=== PATIENT | female | born 1995 | race Hispanic/Latino ===

== ENCOUNTER 2018-04-30 20:17 | Day surgery (SDC) | payer BC ==
[2018-04-30 21:10] VITALS: BP 101/60; TEMP 99.1; BMI 19.3
--- NOTE | 2018-04-30 21:22 | PDOC.LDHP ---
Labor and Delivery H&P Chief complaint: contractions HPI: 22 y/o at 23w5d, patient of Dr. Beckham, presents with intermittent ctx today, vaginal discharge, and some SOB earlier that has now resolved. Denies VB , LOF, regular ctx, or decreased FM. ROS neg for HEENt, cv, pulm, gi, gu, neuro, psych, skin, musculoskeletal or constitutional symptoms other than mentioned above. OB History Details: 1 prior LTCS 1 prior "5 month" demise with Current complications: none Past Medical History: None Current medications: none Previous surgical history: low tranverse CS Allergies/Adverse Reactions: Allergies Allergy/AdvReac Type Severity Reaction Status Date / Time No Known Allergies Allergy Unverified 04/30/18 21:05 Social history: none - Physical Exam Vital signs reviewed and normal: yes General: NAD, resting Lungs: CTAB Abdomen: NTTP FHT: category 1 (150s, mod variability, + 10x10 accels, single variable decel) [place] contractions every: none - Vaginal Exam cm dilated: 0 (firm, posterior) Effacement: 0% (0) Station: -3 - Assessment 22 y/o at 23w5d with no e/o PTL. status reassuring. VP3 pending. - Plan -: D/c home with precautions. Advised to keep all appointments. Will call if VP3 results require treatment.
== END 2018-04-30 21:25 | disposition home or self-care (01) ==
LOC: L&D/OP 20:17
PROVIDERS: ATTEND Family Medicine
DX: O47.02 False labor before 37 completed weeks of gestation, second trimester (principal); O99.89 Other specified diseases and conditions complicating pregnancy, childbirth and the puerperium; N89.8 Other specified noninflammatory disorders of vagina; Z3A.23 23 weeks gestation of pregnancy
CPT/HCPCS: 87480; 87510; 87660; 99283

== ENCOUNTER 2018-05-05 07:15 | Outpatient (CLI) | payer BC ==
--- NOTE | 2018-05-05 08:41 | ULT ---
OB ULTRASOUND: 05/05/2018 HISTORY: Intrauterine gestation. Evaluate anatomy. FINDINGS There is a single intrauterine gestation, in cephalic presentation. Cardiac Doppler demonstrates fet al heart tones with a heart rate of 146 beats per minute. The placenta is located posteriorly without evidence of placenta previa. There is a normal amount of amniotic fluid with an amniotic flu id index of 10.19 cm. The cervix is not well delineated on this examination. MEASUREMENTS: Biparietal diameter: 5.93 cm (24 weeks 2 days). Head circumference: 21.61 cm (23 weeks 5 days). Abdominal circumference: 18.65 cm (23 weeks 4 days). Femur length: 4.25 cm (24 weeks). The estimated gestational age by ultrasound is 24 weeks, with an EBONIE of 09/14/2018. Gestational age by last menstrual period is 24 weeks 3 days. Estimated weight by ultrasound is 616 g (1 lb 6 oz). This represents the 13th percentile for f etal weight. The cerebellum, the visualized portion of the spine, the four-chambered heart, the stomach, the bilateral kidneys, and the urinary bladder demonstrate a normal sonographic appearance. Cord insert ion is difficult to delineate due to positioning but is grossly within normal limits. A three- vessel cord is unable to be delineated on this exam. No definite anomalies are seen. IMPRESSION: 1. Single intrauterine gestation, in cephalic presentation, with heart tones documented. Gest ational age by ultrasound is 24 weeks, with an estimated date of delivery of 08/25/2018. 2. Estimated weight is 616 g (1 lb 6 oz). 3. Amniotic fluid index is 10.19 cm. POS: [facility]
== END 2018-05-05 07:16 | disposition home or self-care (01) ==
LOC: BICULT 07:15
PROVIDERS: ATTEND Family Medicine
DX: O09.892 Supervision of other high risk pregnancies, second trimester (principal); Z3A.24 24 weeks gestation of pregnancy
CPT/HCPCS: 76805

== ENCOUNTER 2018-07-17 18:41 | Day surgery (SDC) | payer OTHER ==
[2018-07-17 19:14] VITALS: BP 111/68; TEMP 98; BMI 19.2
[2018-07-17] MEDS ORDERED: Betamet Acet/Betamet Na Ph 30 MG/5 ML VIAL IM SCH (20:15)
--- NOTE | 2018-07-18 02:29 | PRG ---
DATE OF SERVICE: 07/17/2018 PRIMARY OBSTETRICS: Vel Beckham MD CHIEF COMPLAINT: Abdominal pain. HISTORY OF PRESENT ILLNESS: The patient is a 22-year-old, G3, P1 female with an intrauterine at 34 weeks and 6 days, who is presenting to Labor and Delivery with uterine contractions that she has been feeling about every 20 to 30 minutes. She reports that she delivered her last baby around 34 weeks and is worried that she may be delivering this baby at the same time. She denies any regular painful contractions apart from the one she is feeling 2 to 3 an hour. The patient denies any vaginal bleeding or leakage of fluid. She denies any urinary urgency or frequency. She denies any headache, chest pain, shortness of breath, nausea, vomiting, diarrhea, constipation, hip problems, knee problems, muscle weakness. The patient denies any supplementation or progesterone supplementation with her OB doctor. PAST MEDICAL HISTORY: Negative. PAST SURGICAL HISTORY: She has had a tonsillectomy. ALLERGIES: NO KNOWN DRUG ALLERGIES. MEDICATIONS: vitamins. PAST SURGICAL HISTORY: for non-reassuring heart tones. SOCIAL HISTORY: Denies drug, alcohol, or tobacco use. OBSTETRICS LABORATORY DATA: Unavailable at time of dictation. REVIEW OF SYSTEMS: Per HPI. PHYSICAL EXAMINATION: VITAL SIGNS: Blood pressure 119/70, heart rate of 90, respiratory rate of 18, saturating 100% on room air, temperature 98. GENERAL: She appears to be in no acute distress. She is alert, oriented, cooperative, and pleasant to interact with. HEAD: Normocephalic, atraumatic. LUNGS: Clear to auscultation bilaterally. HEART: Regular rate and rhythm. ABDOMEN: Gravid, soft, and nontender. EXTREMITIES: Nontender and nonedematous. CERVICAL: The patient is 1, 75, and -1 station. Repeat after 2-1/2 hours is unchanged. heart tracing baseline is shown to be in the 130s with moderate long-term variability, positive 15 x 15 accelerations, no decelerations. She does show irritability on the monitor with contractions at about every 7 to 15 minutes. ASSESSMENT AND PLAN: The patient is a 22-year-old female with an intrauterine at 34 weeks and 6 days, and feels by digital exam, a shortened cervix. The patient is showing irritability with contractions on the monitor and given the patient's history of 34-week delivery, we have opted to treat the patient with steroids. She has gotten one dose of betamethasone this evening. She will be discharged to home with instructions to return tomorrow for her second shot. Fetus has a reactive NST and category 1 tracing. The patient has been sent home with labor precautions. Job ID: [id number]
== END 2018-07-17 21:50 | disposition home or self-care (01) ==
LOC: L&D/OP 18:41
PROVIDERS: ATTEND Family Medicine
DX: O47.03 False labor before 37 completed weeks of gestation, third trimester (principal); Z3A.34 34 weeks gestation of pregnancy; Z79.899 Other long term (current) drug therapy; Z87.51 Personal history of pre-term labor
CPT/HCPCS: 59025; 96372; 99283; J0702

== ENCOUNTER 2018-08-16 10:56 | Inpatient (IN) | payer MEDICAID, SELFPAY ==
[2018-08-16 11:47] VITALS: BMI 20.2
[2018-08-16] MEDS ORDERED: Ondansetron PF 4 MG/2 ML Vial IVP PRN ×3 (12:20→17:20)
[2018-08-16] MEDS ORDERED: Bicitra 30 ML UDCUP PO SCH (12:20)
[2018-08-16] MEDS ORDERED: Promethazine HCl 25 MG/ML VIAL IM PRN ×2 (12:20→14:11)
[2018-08-16] MEDS ORDERED: Lactated Ringer's 1,000 ML IV SCH (12:20)
[2018-08-16] MEDS ORDERED: CEFAZOLIN 2 GM in Premix Bag 1 BAG IVPB SCH (12:30)
[2018-08-16 12:32] LABS: Hemoglobin 9.5 g/dL (12.0-16.0); Mean Corpuscular HGB CONC 33.8 g/dL (32.0-36.0); Mean Corpuscular Hemoglobin 20.2 pg (27.0-31.0); Mean Corpuscular Volume 59.8 fL (78.0-98.0); Mean Platelet Volume 11.2 fL (7.4-10.4); Platelet Count 428 thou/uL (130-400); RBC Distribution Width 18.4 % (11.5-14.5); Red Blood Cell (RBC) Count 4.67 mill/uL (4.20-5.40); White Blood Cell (WBC) Count 10.6 thou/uL (4.8-10.8)
[2018-08-16] MEDS ORDERED: Fentanyl 100 MCG/2 ML VIAL ONE (13:04)
[2018-08-16] MEDS ORDERED: MORPHINE 5 MG/10 ML PF VIAL ONE (13:04)
[2018-08-16] MEDS ORDERED: Oxytocin 10 UNITS/ML VIAL ONE ×2 (13:05→14:54)
[2018-08-16] MEDS ORDERED: Metoclopramide HCl 10 MG/2 ML VIAL ONE ×2 (13:05→13:39)
[2018-08-16] MEDS ORDERED: Ondansetron PF 4 MG/2 ML Vial ONE ×2 (13:05→13:39)
[2018-08-16 13:11] LABS: Syphilis Antibody Nonreactive (Nonreactive); Syphilis Antibody Index 0.03 S/CO (<1.00 Non-Reactive)
[2018-08-16 13:12] LABS: HBSAg Index 0.29 S/CO (0-0.99); Hep B Surf Ag Non-Reactive S/CO (NonReactive)
[2018-08-16] MEDS ORDERED: Ketorolac Tromethamine 30 MG/ML VIAL ONE ×2 (13:39→14:44)
[2018-08-16] MEDS ORDERED: ePHEDrine 50 MG/ML VIAL ONE (13:39)
[2018-08-16] MEDS ORDERED: Ketorolac Tromethamine 30 MG/ML VIAL IVP PRN (14:11)
[2018-08-16] MEDS ORDERED: Naloxone HCl 0.4 mg/ml Vial IVP PRN ×2 (14:11)
[2018-08-16] MEDS ORDERED: Ondansetron HCl/PF 4 MG/2 ML Vial IVP PRN (14:11)
[2018-08-16] MEDS ORDERED: diphenhydrAMINE 50 MG/ML VIAL IVP PRN (14:11)
[2018-08-16] MEDS ORDERED: HYDROmorphone 2 MG/ML VIAL SLOW IVP PRN (14:11)
[2018-08-16] MEDS ORDERED: Promethazine HCl 25 MG SUPP PR PRN (14:11)
[2018-08-16] MEDS ORDERED: L&D-Morphine 4 MG/ML VIAL SLOW IVP PRN (14:11)
[2018-08-16] MEDS ORDERED: Ketorolac Tromethamine 30 MG/ML VIAL IVP SCH ×2 (14:15→18:00)
[2018-08-16] MEDS ORDERED: Communication Order-Pharmacy FS SCH (14:15)
[2018-08-16] MEDS ORDERED: Naloxone HCl 0.4 mg/ml Vial IV PRN (14:30)
[2018-08-16] MEDS ORDERED: Meperidine HCl/PF 25 MG/ML VIAL ONE ×2 (15:37→16:50)
[2018-08-16] MEDS: Meperidine HCl/PF 25 MG/ML VIAL SLOW IVP PRN ×2 (15:41→16:51)
[2018-08-16] MEDS ORDERED: Adacel (T-DAP) 0.5 ML SYRINGE IM ONE (17:20)
[2018-08-16] MEDS ORDERED: diphenhydrAMINE 25 MG CAP PO PRN (17:20)
[2018-08-16] MEDS ORDERED: Lanolin Ointment 7 GM TUBE TOP PRN (17:20)
[2018-08-16] MEDS ORDERED: NS / Oxytocin 40 units/1000ml 1,000 ML IV SCH (17:20)
[2018-08-16] MEDS ORDERED: Meperidine HCl/PF 25 MG/ML VIAL IM PRN (17:20)
[2018-08-16] MEDS ORDERED: Bisacodyl 10 MG SUPP PR PRN (17:20)
[2018-08-16] MEDS: Ketorolac Tromethamine 30 MG/ML VIAL IVP SCH (20:15)
[2018-08-16] MEDS: Ferrous Sulfate 325 MG TAB PO SCH (22:08)
[2018-08-16] MEDS: Docusate Calcium (SURFAK) 240 MG CAP PO SCH (22:08)
[2018-08-17] MEDS: Ketorolac Tromethamine 30 MG/ML VIAL IVP SCH ×2 (02:12→07:50)
[2018-08-17] MEDS ORDERED: Sodium Chloride 0.9% 10 ML ONE ×2 (04:40→07:48)
[2018-08-17] MEDS: HYDROcodone/Acetaminophen 5/325 mg Tablet PO PRN ×3 (04:42→20:03)
[2018-08-17 06:32] LABS: Hemoglobin 7.7 g/dL (12.0-16.0); Mean Corpuscular HGB CONC 32.8 g/dL (32.0-36.0); Mean Corpuscular Hemoglobin 20.2 pg (27.0-31.0); Mean Corpuscular Volume 61.5 fL (78.0-98.0); Mean Platelet Volume 5.3 fL (7.4-10.4); Platelet Count 332 thou/uL (130-400); RBC Distribution Width 18.6 % (11.5-14.5); Red Blood Cell (RBC) Count 3.81 mill/uL (4.20-5.40); White Blood Cell (WBC) Count 12.6 thou/uL (4.8-10.8)
[2018-08-17] MEDS: Ferrous Sulfate 325 MG TAB PO SCH ×2 (07:52→20:04)
[2018-08-17] MEDS: Prenatal Vitamin 1 TAB PO SCH (07:53)
[2018-08-17] MEDS: Docusate Calcium (SURFAK) 240 MG CAP PO SCH ×2 (07:53→20:04)
--- NOTE | 2018-08-17 10:50 | PDOC.PP ---
Post Progress Note Post Day #: 1 Subjective: Feeling well. Pain is well controlled and she is up to the bathroom without issue. She endorses some blood tinged urine but no blood clots and is getting progressively more yellow. PO intake tolerated: yes Flatus: yes Ambulation: yes Vital Signs (12 hours) Temp Pulse Resp BP Pulse Ox 08/17/18 08:20 98.2 F 69 20 112/76 98 08/17/18 05:00 98.2 F 62 16 118/69 08/16/18 23:58 98.5 F 77 16 114/59 L Weight Weight 51.71 kg - Physical Examination General: NAD Cardiovascular: no m/r/g, RRR Respiratory: clear to auscultation bilaterally, non-labored breathing Abdominal: + bowel sounds, lochia (scant), no distention, appropriately TTP Fundus firm & at: umbilicus Extremities: negative homans (B) Skin: CS incision dry & intact (pressure dressing in place) Neurological: no gross focal deficits Psychiatric: A&Ox3, normal affect Result Diagrams: 08/17/18 05:54 Additional Labs: Post Labs Blood Type O POSITIVE 08/16/18 17:21 Hep Bs Antigen Non-Reactive S/CO (NonReactive) 08/16/18 12:22 (1) Status post repeat low transverse section Code(s): Z98.891 - HISTORY OF UTERINE SCAR FROM PREVIOUS SURGERY Status: Acute (2) Term delivered Code(s): O80 - ENCOUNTER FOR FULL-TERM UNCOMPLICATED DELIVERY Status: Acute - Assessment/Plan 22 yo now 1112 POD #2 from repeat LTCS 1. POD #1 - course progressing as expected - Pain well controlled - Continue routine pp care
[2018-08-17] MEDS: Ibuprofen 800 MG TAB PO SCH ×2 (14:13→21:31)
--- NOTE | 2018-08-17 15:19 | OP ---
DATE OF PROCEDURE: 08/16/2018 RESIDENT SURGEON: Nella Turner MD, PGY-3 ATTENDING SURGEON: Vel Beckham MD PROCEDURE PERFORMED: Repeat low transverse section. PREOPERATIVE DIAGNOSES: 1. Term intrauterine . 2. Previous section x1. POSTOPERATIVE DIAGNOSES: 1. Term intrauterine , status post repeat low transverse section. 2. Uterine window, repaired. ANESTHESIA: Spinal. INDICATIONS: The patient is a 22-year-old, G3, P0-1-1-1 at 39.1 weeks gestation , who presented for repeat scheduled . DESCRIPTION OF PROCEDURE: After risks, benefits, and alternatives were explained to the patient, she gave informed consent. Preoperative antibiotics included cefazolin 2 g IV. The patient was taken to the operating room and spinal anesthesia was initiated. She was placed in supine position with left tilt and prepped and draped in usual sterile fashion. Pfannenstiel incision was made with a scalpel and carried down to the level of the fascia, which was sharply nicked. The fascial cut was extended bilaterally with Francis scissors. The inferior and superior edges of the fascial edges were elevated with Jose clamps and underlying rectus muscles were sharply and bluntly dissected free. Of note, significant adhesions were noted at this level. The recti were divided digitally and retracted medially. Peritoneum was entered bluntly and retracted manually, again with thick adhesions. The bladder blade was placed and notable uterine window, approx 1 cm x 3 cm was visualized. The bladder flap was unable to be created due to the low nature of the window. The uterus unable to be opened with Allis clamp and was carefully entered with a scalpel. Clear fluid was seen. The hysterotomy was extended manually. The infant was noted to be vertex and easily delivered by fundal pressure. Mouth and nares were bulb suctioned. The cord was clamped and cut, and grossly normal female was handed to the nurse. Cord blood was obtained. Placenta was manually extracted, found to be intact with three vessel cord and discarded. The uterus was externalized and the endometrium was curetted with a dry lap. The bladder blade was replaced and the uterus closed with a running locking 0 Vicryl suture followed by a running nonlocking 0 Vicryl imbricating suture. Following this, an additional suture of [id number] suture was placed at both corners for hemostasis. The abdomen was irrigated and suctioned free of clots. Seprafilm was applied to the anterior surface of the uterus. The uterus was internalized and the hysterotomy was again noted to be hemostatic. The peritoneum was closed with a running 3-0 Vicryl suture. The fascia was closed with a running nonlocking 0 PDS suture. Subcutaneous tissue was irrigated. All bleeders were cauterized. The subcutaneous fat was approximated with three interrupted 3-0 Vicryl sutures. The skin was approximated with oneal and a pressure dressing was placed. All counts were correct. The patient tolerated the procedure well and sent to the recovery room in stable condition. QUANTITATIVE BLOOD LOSS: 622 mL. COMPLICATIONS: Significant adhesions at the level of the fascia and rectus were noted. The patient also had a large uterine window anteriorly, which was incorporated with hysterotomy repair. This was very low lying and a vaginal exam was performed showed a patent cervix. The patient also had blood-tinged urine after the procedure without any clots. SPECIMEN: Cord blood sent to lab for blood type. FINDINGS: Grossly normal female with Apgars of 7, 8, and 9 at 1, 5, and 10 minutes respectively. Grossly normal placenta with three vessel cord discarded. DRAINS: Gutierrez to gravity draining blood-tinged urine as noted above. Job ID: [id number] [facility]
[2018-08-17] MEDS: Simethicone Chewable 80 MG TAB PO PRN ×2 (17:37→21:31)
[2018-08-18] MEDS: Ibuprofen 800 MG TAB PO SCH ×3 (05:23→22:09)
[2018-08-18] MEDS: Docusate Calcium (SURFAK) 240 MG CAP PO SCH ×2 (08:42→22:09)
[2018-08-18] MEDS: HYDROcodone/Acetaminophen 5/325 mg Tablet PO PRN ×2 (08:42→14:08)
[2018-08-18] MEDS: Prenatal Vitamin 1 TAB PO SCH (08:42)
[2018-08-18] MEDS: Ferrous Sulfate 325 MG TAB PO SCH ×2 (08:42→22:08)
[2018-08-19] MEDS: Ibuprofen 800 MG TAB PO SCH (06:05)
[2018-08-19 09:32] VITALS: BP 127/74; TEMP 98.2
[2018-08-19] MEDS: Docusate Calcium (SURFAK) 240 MG CAP PO SCH (10:14)
[2018-08-19] MEDS: Prenatal Vitamin 1 TAB PO SCH (10:14)
== END 2018-08-19 13:10 | disposition home or self-care (01) | DRG 788 ==
LOC: L&D 10:56 → 3SW 17:41
PROVIDERS: ADMIT Family Medicine; ATTEND Family Medicine
PROC: 10D00Z1 Extraction of Products of Conception, Low, Open Approach (ICD-10-PCS; principal; 2018-08-17)
DX: O34.211 Maternal care for low transverse scar from previous cesarean delivery (principal); N85.8 Other specified noninflammatory disorders of uterus; Z3A.39 39 weeks gestation of pregnancy; Z37.0 Single live birth; O94 Sequelae of complication of pregnancy, childbirth, and the puerperium
CPT/HCPCS: 36415; 51702; 85027; 86780; 86850; 86900; 86901; 87340; J0690; J1885; J2175; J2270; J2405; J2590; J2765; J3010; J3490

== ENCOUNTER 2020-05-15 13:20 | Inpatient (IN) | payer MEDICAID, SELFPAY ==
[2020-05-15] MEDS ORDERED: Fentanyl 100 MCG/2 ML VIAL ONE (13:37)
[2020-05-15] MEDS ORDERED: Ondansetron PF 4 MG/2 ML Vial ONE ×2 (13:38→18:39)
[2020-05-15 14:04] LABS: Bilirubin Negative (Negative); Blood, Urine Negative (Negative); Clarity Clear (Clear); Glucose, Urine (Dipstick) Normal (Negative); Ketone, Urine 20 mg/dL (Negative); Leukocyte Negative Leu/uL (Negative); Nitrite Negative (Negative); Protein, Urine (Dipstick) Negative (Neg-Trace); Specific Gravity, Urine 1.009 (1.002-1.036); Urobilinogen Normal mg/dL (Less than 2)
[2020-05-15 14:06] LABS: Pregnancy Test - Urine (BHCG) Negative (Negative); Pregu Control Background? CLEAR/WHITE (CLR/WHITE); Pregu Control Bar Appear? YES (CONTROL BAR); Specific Gravity 1.009 (1.002-1.036)
[2020-05-15 14:15] LABS: Amphetamine Not Detected (NotDetected); Barbiturates Screen Not Detected (NotDetected); Benzodiazepine Screen Not Detected (NotDetected); Cocaine Metabolite Screen Not Detected (NotDetected); Medtox Control Line Valid? VALID (VALID); Medtox Reader # READER 4; Methadone Not Detected (NotDetected); Methamphetamine Not Detected (NotDetected); Opiate Screen Not Detected (NotDetected); Oxycodone Screen Not Detected (NotDetected); Phencyclidine (PCP) Not Detected (NotDetected); THC/Cannabinoid Screen Not Detected (NotDetected); Tricyclic Screen Not Detected (NotDetected)
[2020-05-15 14:47] LABS: #Basophils 0.1 thou/uL (0.0-0.2); #Eosinphils 0.1 thou/uL (0.0-0.7); #Lymphocytes 1.9 thou/uL (1.20-3.40); #Monocytes 0.6 thou/uL (0.11-0.59); #Neutrophils 7.3 thou/uL (1.40-6.50); %Basophils 0.9 % (0.0-1.0); %Eosinophils 0.8 % (0.0-10.0); %Lymphocytes 19.4 % (21.0-51.0); %Monocytes 5.8 % (0.0-10.0); %Neutrophils 73.1 % (42.0-75.0); Hemoglobin 10.7 g/dL (12.0-16.0); Mean Corpuscular HGB CONC 33.6 g/dL (32.0-36.0); Mean Corpuscular Hemoglobin 23.4 pg (27.0-31.0); Mean Corpuscular Volume 69.5 fL (78.0-98.0); Mean Platelet Volume 8.7 fL (7.4-10.4); Platelet Count 431 thou/uL (130-400); RBC Distribution Width 18.3 % (11.5-14.5); Red Blood Cell (RBC) Count 4.56 mill/uL (4.20-5.40)
[2020-05-15 14:54] LABS: ALT (SGPT) 7 U/L (8-55); AST (SGOT) 10 U/L (5-34); Albumin 4.2 g/dL (3.5-5.0); Alcohol Less than 10 mg/dL (Less than 10); Alkaline Phosphatase 51 U/L (40-110); Anion Gap 13 mmol/L (10-20); BUN (Urea Nitrogen) 6 mg/dL (7.0-18.7); Calc. Creatinine Clearance 0 mL/min (70-130); Calcium 8.7 mg/dL (7.8-10.44); Carbon Dioxide 21 mmol/L (22-29); Chloride 110 mmol/L (98-107); Globulin 2.7 g/dL (2.4-3.5); Glucose 99 mg/dL (70-105); Potassium 3.8 mmol/L (3.5-5.1); Protein, Total 6.9 g/dL (6.0-8.3); Salicylate Less than 8.0 mg/dL (15.0-30.0); Sodium 140 mmol/L (136-145)
[2020-05-15 15:06] LABS: Anisocytosis SLIGHT = 6-15 cells (100X) (0-5/hpf); Hypochromia SLIGHT = 6-15 cells (100X) (0-5/hpf); MDiff Complete? YES; Microcytosis MODERATE=15-30 cells (100X) (0-5/hpf); Platelet Morphology Comment Appears Increased; Polychromasia SLIGHT = 2-3 cells (100X) (0-2/hpf); Schistocytes SLIGHT = 2-5 cells (100X) (0-1/hpf); Target Cells MODERATE= 6-15 cells (100X) (0-1/hpf); Tear Drops SLIGHT = 2-5 cells (100X) (0-1/hpf)
[2020-05-15 16:55] LABS: INR-International Normal Ratio 1.2; PTT 35.3 sec (22.9-36.1); Prothrombin Time 15.9 sec (12.0-14.7)
--- NOTE | 2020-05-15 17:02 | PDOC.HHP ---
Hospitalist BAKARI Tylenol overdose History of Present Illness: 24-year-old female who has underlying history of anxiety and depression, who presented to emergency room after Tylenol overdose, patient reports that she took approximately 28 Tylenol, patient also took some melatonin, she took around 1230 this afternoon, subsequently she was having nausea but no vomiting, she was having mild headache, she did drug overdose with attempt to harm herself, patient has history of depression but she did it first time attempt, ED Course: In the emergency room patient is given acetylcysteine bolus and subsequently maintenance dose was started Allergies/Adverse Reactions: Allergy/AdvReac Type Severity Reaction Status Date / Time No Known Allergies Allergy Verified 07/17/18 19:06 Home Medications: Medication Instructions Recorded Confirmed Type 21/Iron Fu/Folic Acid 1 tablet PO DAILY 07/17/18 07/17/18 History [ Complete Caplet] Docusate Calcium [Surfak] 240 mg PO BID #60 cap 08/19/18 Rx Ferrous Sulfate [Feosol] 325 mg PO BID #0 tab 08/19/18 Rx HYDROcodone Bit/APAP 5/325 [[place]] 1 tab PO Q4H PRN #60 tab 08/19/18 Rx Ibuprofen [Motrin] 800 mg PO Q8HR #60 tab 08/19/18 Rx Iron Carb,Gl/FA/B12/C/Docusate 1 tab PO BID #90 tablet 08/19/18 Rx [Ferralet 90] Past History: Past medical history Reviewed and negative Past psychiatric history Anxiety and depression Past surgical history x2 Family history No strong family history of premature coronary artery disease stroke or cancer Social history Patient denies any tobacco alcohol or illicit drug abuse, lives at home with family Hospitalist BAKARI LOPEZ Constitutional: reports: weakness. denies: fever, chills, sweats, malaise, othe r Respiratory: denies: cough, dry, shortness of breath, hemoptysis, SOB with excertion, pleuritic pain, sputum, wheezing, other Cardiovascular: denies: chest pain, palpitations, orthopnea, paroxysmal noc. dyspnea, edema, light headedness, other Gastrointestinal: reports: nausea. denies: vomiting, abdominal pain, diarrhea, constipation, melena, hematochezia, other Genitourinary: denies: dysuria, frequency, incontinence, hematuria, retention, other Musculoskeletal: denies: neck pain, shoulder pain, arm pain, back pain, hand pain, leg pain, foot pain, other Skin: denies: rash, lesions, lucille, bruising, other Hospitalist Exam General Appearance: NAD, awake alert Eye: PERRL, anicteric sclera ENT: normocephalic atraumatic, no oropharyngeal lesions Neck: supple, symmetric, no JVD, no thyromegaly Heart: RRR, no murmur, no gallops, no rubs Respiratory: no wheezes, no rales, no ronchi Gastrointestinal: soft, non-tender, non-distended, normal bowel sounds Extremities: no cyanosis, no clubbing, no edema Skin: normal turgor, no lesions Neurological: no focal deficits Musculoskeletal: normal tone, normal strength, no muscle wasting Psychiatric: normal affect, normal behavior, A&O x 3 Hospitalist Results Result Diagrams: 05/15/20 14:13 05/15/20 14:13 Lab results: Laboratory Last Values WBC 10.0 thou/uL (4.8-10.8) 05/15/20 14:13 RBC 4.56 mill/uL (4.20-5.40) 05/15/20 14:13 Hgb 10.7 g/dL (12.0-16.0) L 05/15/20 14:13 Hct 31.7 % (36.0-47.0) L 05/15/20 14:13 MCV 69.5 fL (78.0-98.0) L 05/15/20 14:13 MCH 23.4 pg (27.0-31.0) L 05/15/20 14:13 MCHC 33.6 g/dL (32.0-36.0) 05/15/20 14:13 RDW 18.3 % (11.5-14.5) H 05/15/20 14:13 Plt Count 431 thou/uL (130-400) H 05/15/20 14:13 MPV 8.7 fL (7.4-10.4) 05/15/20 14:13 Neutrophils % 73.1 % (42.0-75.0) 05/15/20 14:13 Neutrophils % (Manual) Not Reportable 05/15/20 14:13 Lymphocytes % 19.4 % (21.0-51.0) L 05/15/20 14:13 Monocytes % 5.8 % (0.0-10.0) 05/15/20 14:13 Eosinophils % 0.8 % (0.0-10.0) 05/15/20 14:13 Basophils % 0.9 % (0.0-1.0) 05/15/20 14:13 Neutrophils # 7.3 thou/uL (1.40-6.50) H 05/15/20 14:13 Lymphocytes # 1.9 thou/uL (1.20-3.40) 05/15/20 14:13 Monocytes # 0.6 thou/uL (0.11-0.59) H 05/15/20 14:13 Eosinophils # 0.1 thou/uL (0.0-0.7) 05/15/20 14:13 Basophils # 0.1 thou/uL (0.0-0.2) 05/15/20 14:13 Hypochromia SLIGHT = 6-15 cells (100X) (0-5/hpf) 05/15/20 14:13 Plt Morphology Comment Appears Increased H 05/15/20 14:13 Polychromasia SLIGHT = 2-3 cells (100X) (0-2/hpf) 05/15/20 14:13 Anisocytosis SLIGHT = 6-15 cells (100X) (0-5/hpf) 05/15/20 14:13 Microcytosis MODERATE=15-30 cells (100X) (0-5/hpf) H 05/15/20 14:13 Target Cells MODERATE= 6-15 cells (100X) (0-1/hpf) H 05/15/20 14:13 Tear Drop Cells SLIGHT = 2-5 cells (100X) (0-1/hpf) 05/15/20 14:13 Schistocytes SLIGHT = 2-5 cells (100X) (0-1/hpf) 05/15/20 14:13 PT 15.9 sec (12.0-14.7) H 05/15/20 16:35 INR 1.2 05/15/20 16:35 APTT 35.3 sec (22.9-36.1) 05/15/20 16:35 Sodium 140 mmol/L (136-145) 05/15/20 14:13 Potassium 3.8 mmol/L (3.5-5.1) 05/15/20 14:13 Chloride 110 mmol/L (98-107) H 05/15/20 14:13 Carbon Dioxide 21 mmol/L (22-29) L 05/15/20 14:13 Anion Gap 13 mmol/L (10-20) 05/15/20 14:13 BUN 6 mg/dL (7.0-18.7) L 05/15/20 14:13 Creatinine 0.71 mg/dL (0.6-1.1) 05/15/20 14:13 Estimated GFR (MDRD) Greater than 90 05/15/20 14:13 Glucose 99 mg/dL (70-105) 05/15/20 14:13 Calcium 8.7 mg/dL (7.8-10.44) 05/15/20 14:13 Total Bilirubin 1.0 mg/dL (0.2-1.2) 05/15/20 14:13 AST 10 U/L (5-34) 05/15/20 14:13 ALT 7 U/L (8-55) L 05/15/20 14:13 Alkaline Phosphatase 51 U/L (40-110) 05/15/20 14:13 Serum Total Protein 6.9 g/dL (6.0-8.3) 05/15/20 14:13 Albumin 4.2 g/dL (3.5-5.0) 05/15/20 14:13 Globulin 2.7 g/dL (2.4-3.5) 05/15/20 14:13 Albumin/Globulin Ratio 1.6 g/dL (1.2-2.2) 05/15/20 14:13 TSH 3rd Generation 0.6076 uIU/mL (0.35-4.94) 05/15/20 14:13 Urine Color Colorless (Yellow) 05/15/20 13:38 Urine Clarity Clear (Clear) 05/15/20 13:38 Urine pH 6.0 (5.0-9.0) 05/15/20 13:38 Ur Specific Waves 1.009 (1.002-1.036) 05/15/20 13:38 Ur Specific Waves 1.009 (1.002-1.036) 05/15/20 13:38 Urine Protein Negative mg/dL (Neg-Trace) 05/15/20 13:38 Urine Glucose (UA) Normal mg/dL (Negative) 05/15/20 13:38 Urine Ketones 20 mg/dL (Negative) A 05/15/20 13:38 Urine Blood Negative (Negative) 05/15/20 13:38 Urine Nitrite Negative (Negative) 05/15/20 13:38 Urine Bilirubin Negative (Negative) 05/15/20 13:38 Urine Urobilinogen Normal mg/dL (Less than 2) 05/15/20 13:38 Ur Leukocyte Esterase Negative Graham/uL (Negative) 05/15/20 13:38 Urine Test Negative (Negative) 05/15/20 13:38 Salicylates Less than 8.0 mg/dL (15.0-30.0) L 05/15/20 14:13 Urine Opiates Screen Not Detected (NotDetected) 05/15/20 13:38 Ur Oxycodone Screen Not Detected (NotDetected) 05/15/20 13:38 Urine Methadone Screen Not Detected (NotDetected) 05/15/20 13:38 Ur Propoxyphene Screen Not Detected (NotDetected) 05/15/20 13:38 Acetaminophen 280.0 mcg/mL (10.0-30.0) H* 05/15/20 14:13 Ur Barbiturates Screen Not Detected (NotDetected) 05/15/20 13:38 Ur Tricyclics Screen Not Detected (NotDetected) 05/15/20 13:38 Ur Phencyclidine Scrn Not Detected (NotDetected) 05/15/20 13:38 Ur Amphetamines Screen Not Detected (NotDetected) 05/15/20 13:38 U Methamphetamines Scrn Not Detected (NotDetected) 05/15/20 13:38 U Benzodiazepines Scrn Not Detected (NotDetected) 05/15/20 13:38 U Cocaine Metab Screen Not Detected (NotDetected) 05/15/20 13:38 U Cannabinoids Screen Not Detected (NotDetected) 05/15/20 13:38 Drug Screen Comment () 05/15/20 13:38 Plasma Alcohol Less than 10 mg/dL (Less than 10) 05/15/20 14:13 Additional comment: EKG showing normal sinus rhythm Hospitalist H&P A/P (1) Suicide attempt by acetaminophen overdose Code(s): T39.1X2A - POISONING BY 4-AMINOPHENOL DERIVATIVES, SELF-HARM, INIT Status: Acute (2) Tylenol overdose Code(s): T39.1X1A - POISONING BY 4-AMINOPHENOL DERIVATIVES, ACCIDENTAL, INIT Status: Acute Qualifiers: Encounter type: initial encounter (3) Anxiety and depression Code(s): F41.9 - ANXIETY DISORDER, UNSPECIFIED; F32.9 - MAJOR DEPRESSIVE DISORDER, SINGLE EPISODE, UNSPECIFIED Status: Chronic (4) Microcytic anemia Code(s): D50.9 - IRON DEFICIENCY ANEMIA, UNSPECIFIED Status: Chronic Plan: Admission to telemetry Continue acetylcysteine as per protocol Continue IV fluid, will give her 5% dextrose with half-normal saline with a 20 M EQ KCl with 1 ampoule of sodium bicarbonate at 125 mill per hour If liver function gets worse tomorrow then will consider GI evaluation, Monitor Tylenol level Check ferritin and repeat labs tomorrow including CBC CMP and INR, along with phosphorus and magnesium Continue ferrous sulfate 325 mg p.o. daily Patient will need MHMR upon stabilization Discussed with the patient that with Tylenol toxicity liver failure is possible and we will closely monitor, if patient has worsening of liver failure any early signs of liver failure then will consider transferring her to tertiary level if needed DVT prophylaxis SCD GI prophylaxis Protonix CODE STATUS patient is full code Disposition plan based on clinical course
[2020-05-15] MEDS ORDERED: Ondansetron PF 4 MG/2 ML Vial IVP PRN (17:07)
[2020-05-15] MEDS ORDERED: Loratadine 10 MG TAB PO PRN (17:07)
[2020-05-15] MEDS ORDERED: Guaifenesin DM 100-10/5 ML UDCUP PO PRN (17:07)
[2020-05-15] MEDS ORDERED: Cepastat Lozenges 1 LOZ PO PRN (17:07)
[2020-05-15] MEDS ORDERED: Bisacodyl 10 MG SUPP PR PRN (17:07)
[2020-05-15] MEDS ORDERED: Zolpidem Tartrate 5 MG TAB PO PRN (17:07)
[2020-05-15] MEDS ORDERED: hydrALAZINE 20 MG/ML VIAL SLOW IVP PRN (17:07)
[2020-05-15] MEDS ORDERED: GUAIFENESIN SF SOLN 200 MG/10 ML UDCUP PO PRN (17:07)
[2020-05-15] MEDS ORDERED: Sodium Chloride 0.65% Nasal 44 ML BOT EA NARE PRN (17:07)
[2020-05-15] MEDS ORDERED: Ondansetron ODT 4 MG TAB PO PRN (17:07)
[2020-05-15] MEDS ORDERED: Calcium Carbonate 500 MG ChewTAB PO PRN (17:07)
[2020-05-15] MEDS ORDERED: Senokot S 8.6-50 MG TAB PO PRN (17:07)
[2020-05-15] MEDS ORDERED: Loperamide HCl 2 MG CAP PO PRN (17:07)
[2020-05-15 17:27] LABS: SARS-CoV-2 NAA Rapid Test Not Detected (NotDetected)
[2020-05-15] MEDS: ACETYLCYSTEINE IV SCH ×4 (18:00→21:46)
[2020-05-15] MEDS: WATER IV SCH ×4 (18:00→21:46)
[2020-05-15] MEDS: DEXTROSE 5% IV SCH ×4 (18:00→21:46)
[2020-05-15 18:10] VITALS: BMI 12.7
[2020-05-15] MEDS: POTASSIUM CHLORIDE IVPB SCH (18:46)
[2020-05-15] MEDS: SODIUM BICARBONATE IVPB SCH (18:46)
[2020-05-15] MEDS: [UNRECOGNIZED DRUG - OTHER] IVPB SCH (18:46)
[2020-05-15] MEDS ORDERED: DEXTROSE 5% IV SCH (22:00)
[2020-05-15] MEDS ORDERED: WATER IV SCH (22:00)
[2020-05-15] MEDS ORDERED: ACETYLCYSTEINE IV SCH (22:00)
[2020-05-16] MEDS: SODIUM BICARBONATE IVPB SCH ×2 (03:29→04:31)
[2020-05-16] MEDS: [UNRECOGNIZED DRUG - OTHER] IVPB SCH ×2 (03:29→04:31)
[2020-05-16] MEDS: POTASSIUM CHLORIDE IVPB SCH ×2 (03:29→04:31)
[2020-05-16 04:15] LABS: INR-International Normal Ratio 1.3; Prothrombin Time 16.4 sec (12.0-14.7)
[2020-05-16 04:16] LABS: PTT 37.1 sec (22.9-36.1)
[2020-05-16 04:24] LABS: #Basophils 0.1 thou/uL (0.0-0.2); #Eosinphils 0.1 thou/uL (0.0-0.7); #Monocytes 0.8 thou/uL (0.11-0.59); #Neutrophils 4.9 thou/uL (1.40-6.50); %Eosinophils 0.7 % (0.0-10.0); %Lymphocytes 40.8 % (21.0-51.0); %Monocytes 8.3 % (0.0-10.0); %Neutrophils 49.2 % (42.0-75.0); Hemoglobin 9.9 g/dL (12.0-16.0); Mean Corpuscular HGB CONC 34.8 g/dL (32.0-36.0); Mean Corpuscular Hemoglobin 24.4 pg (27.0-31.0); Mean Corpuscular Volume 70.3 fL (78.0-98.0); Mean Platelet Volume 8.3 fL (7.4-10.4); Platelet Count 385 thou/uL (130-400); RBC Distribution Width 18.1 % (11.5-14.5); Red Blood Cell (RBC) Count 4.04 mill/uL (4.20-5.40); White Blood Cell (WBC) Count 9.9 thou/uL (4.8-10.8)
[2020-05-16 04:28] LABS: ALT (SGPT) 7 U/L (8-55); AST (SGOT) 9 U/L (5-34); Albumin 3.4 g/dL (3.5-5.0); Alkaline Phosphatase 43 U/L (40-110); Anion Gap 12 mmol/L (10-20); BUN (Urea Nitrogen) 4 mg/dL (7.0-18.7); Bilirubin, Total 0.9 mg/dL (0.2-1.2); Calc. Creatinine Clearance 68 mL/min (70-130); Calcium 7.9 mg/dL (7.8-10.44); Carbon Dioxide 20 mmol/L (22-29); Chloride 108 mmol/L (98-107); Globulin 2.3 g/dL (2.4-3.5); Glucose 132 mg/dL (70-105); Magnesium 1.8 mg/dL (1.6-2.6); Phosphorus 3.1 mg/dL (2.3-4.7); Protein, Total 5.7 g/dL (6.0-8.3); Sodium 137 mmol/L (136-145)
[2020-05-16 04:33] LABS: Potassium 2.9 mmol/L (3.5-5.1)
[2020-05-16] MEDS ORDERED: Potassium Chloride 20 MEQ/100 ML PREMIX BAG IVPB SCH (04:45)
[2020-05-16] MEDS: Ferrous Sulfate 325 MG TAB PO SCH ×2 (07:59→19:12)
[2020-05-16] MEDS ORDERED: Potassium Chloride 20 MEQ TAB PO SCH (08:00)
[2020-05-16] MEDS ORDERED: FLU VACC QS2020-21(6MOS UP)/PF 60 MCG/0.5 ML SYRINGE IM ONE (09:00)
[2020-05-16] MEDS: Potassium Bicarbonate/Cit Ac 20 MEQ TAB PO SCH ×2 (11:24→19:13)
[2020-05-16 14:16] LABS: INR-International Normal Ratio 1.2; Prothrombin Time 15.3 sec (12.0-14.7)
[2020-05-16 14:29] LABS: ALT (SGPT) Less than 7 U/L (8-55); AST (SGOT) 10 U/L (5-34); Acetaminophen Less than 6.0 mcg/mL (10.0-30.0)
[2020-05-16] MEDS ORDERED: ACETYLCYSTEINE IVPB SCH ×2 (16:00)
[2020-05-16] MEDS ORDERED: WATER IVPB SCH (16:00)
[2020-05-16] MEDS ORDERED: SODIUM CHLORIDE 0.9% IVPB SCH (16:00)
[2020-05-16] MEDS ORDERED: DEXTROSE 5% IVPB SCH (16:00)
--- NOTE | 2020-05-16 16:08 | PDOC.HOSPP ---
- Subjective Encounter Date: 05/16/20 Encounter Time: 12:15 Subjective: await alert and oriented well she has no particular stressors that made her take tylenol prior to admission is feeling well this morning at bedside - Objective Vital Signs & Weight: Vital Signs (12 hours) Temp Pulse Ox 05/16/20 12:00 98.4 F 05/16/20 08:00 98.1 F 99 05/16/20 06:45 100 Weight Admit Weight 74 lb 6.496 oz Weight 74 lb 6.496 oz Most Recent Monitor Data Heart Rate from ECG 81 NIBP 113/74 NIBP BP-Mean 87 Respiration from ECG 22 SpO2 100 I&O: 05/15/20 05/16/20 05/17/20 06:59 06:59 06:59 Intake Total 1652 1644 Output Total 500 Balance 1152 1644 Result Diagrams: 05/16/20 03:28 05/16/20 03:28 Hospitalist ROS - Medication Medications: Active Medications Generic Name Dose Route Start Last Admin Trade Name Freq PRN Reason Stop Dose Admin Ferrous Sulfate 325 mg 05/16/20 08:00 05/16/20 07:59 Ferrous Sulfate 325 Mg Tab PO 325 mg BID-WM MELANIE Administration Ondansetron HCl 4 mg 05/15/20 17:07 05/15/20 18:46 Ondansetron Pf 4 Mg/2 Ml Vial IVP 4 mg Q6H PRN Administration Nausea/Vomiting Potassium Bicarbonate/Citric Acid 40 meq 05/16/20 11:30 05/16/20 11:24 Potassium Bicarbonate/Cit Ac 20 Meq Tab PO 05/16/20 23:31 40 meq Q6H MELANIE Administration Hospitalist Exam Vitals: Vital Signs (12 hours) Temp Pulse Ox 05/16/20 12:00 98.4 F 05/16/20 08:00 98.1 F 99 05/16/20 06:45 100 Weight Admit Weight 74 lb 6.496 oz Weight 74 lb 6.496 oz Most Recent Monitor Data Heart Rate from ECG 81 NIBP 113/74 NIBP BP-Mean 87 Respiration from ECG 22 SpO2 100 General Appearance: awake alert Eye: PERRL, anicteric sclera ENT: no oropharyngeal lesions, moist mucosa Neck: supple, no JVD Heart: RRR, no murmur Respiratory: no wheezes, no rales Gastrointestinal: soft, non-tender, non-distended, normal bowel sounds Extremities: no cyanosis, no edema Neurological: cranial nerve grossly intact, no focal deficits Psychiatric: A&O x 3 Hosp A/P (1) Suicide attempt by acetaminophen overdose Code(s): T39.1X2A - POISONING BY 4-AMINOPHENOL DERIVATIVES, SELF-HARM, INIT Status: Acute Qualifiers: Encounter type: subsequent encounter Qualified Code(s): T39.1X2D - Poisoning by 4-Aminophenol derivatives, intentional self-harm, subsequent encounter (2) Tylenol overdose Code(s): T39.1X1A - POISONING BY 4-AMINOPHENOL DERIVATIVES, ACCIDENTAL, INIT Status: Acute Qualifiers: Encounter type: subsequent encounter (3) Anxiety and depression Code(s): F41.9 - ANXIETY DISORDER, UNSPECIFIED; F32.9 - MAJOR DEPRESSIVE DISORDER, SINGLE EPISODE, UNSPECIFIED Status: Chronic (4) Microcytic anemia Code(s): D50.9 - IRON DEFICIENCY ANEMIA, UNSPECIFIED Status: Chronic - Plan hemostable per poison control she will need another round of acetylcystine due to mildly elevated PT, we will follow their recommendation [facility] seen patient and recommend inpt psychiatric hosp for suicide attempt and depression, may dc anytime they find a bed for her is currently not suicidal or homicidal, is very calm and oriented, she has a 2 yr old and 4 yr old at home, is supportive, has multiple family members including sisters, mom and husbands family near her home to help if needed. 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
[2020-05-16 16:43] VITALS: TEMP 98.6
--- NOTE | 2020-05-16 19:17 | DIS ---
DATE OF ADMISSION: 05/15/2020 DATE OF DISCHARGE: 05/16/2020 DISCHARGE DISPOSITION: To inpatient psychiatric facility. PRIMARY DISCHARGE DIAGNOSES: 1. Tylenol overdose with suicidal intent. 2. Underlying major depression. 3. Chronic iron-deficiency anemia. PROCEDURES DONE DURING HOSPITALIZATION: H and H 10 and 28, platelet count 385, MCV is 70. PT is 15.9, INR 1.2, PTT 35, BUN 4, creatinine 0.6, total bilirubin 0.9, AST 10, ALT less than 7, alkaline phosphatase 43, albumin 3.4. TSH 0.60. Urine test is negative. Urine drug screen is negative. Plasma alcohol less than 10. Acetaminophen levels were 280 mcg per dL on arrival. At the time of discharge, her Tylenol levels were less than 6. COVID-19 PCR was not detected on 05/15/2020. Influenza A and B, RNA PCR are negative. DISCHARGE MEDICATION: Ferrous sulfate 325 mg p.o. daily. DISCHARGE PLAN: The patient will be discharged to inpatient psychiatric facility for further counseling and recuperation. BRIEF COURSE DURING HOSPITALIZATION: The patient initially got admitted on the after consuming nearly 28 tablets of Tylenol along with some melatonin. She did with suicidal intent. The patient states after her second child who is 2 years old now, the patient has had off and on mild depression symptoms, but has never really done something like this before. There is no social stressors at home and states she has a loving . She also has home [employer] business which is doing well despite COVID. The patient was given three doses of acetyl cystine, her Tylenol levels are less than 6 at the time of discharge. Her liver function tests are within normal limits. No nausea or vomiting or abdominal pain at the time of discharge. She is tolerating solid diet. She is hemodynamically stable, ambulating in the room. She will be discharged to inpatient psychiatric unit per [facility] advice for further counseling and psychiatric consultations. She is hemodynamically stable. Please see a [id number] documentation for the day of discharge on [employer]. A total of 35 minutes was spent on discharge plan. Job ID: [id number] [facility]
== END 2020-05-16 19:55 | DRG 918 ==
LOC: ERS 13:20 → ERHOLD 16:14 → IMCU/EMU 22:40
PROVIDERS: ADMIT Internal Medicine; ATTEND Internal Medicine
DX: T39.1X2A Poisoning by 4-Aminophenol derivatives, intentional self-harm, initial encounter (principal); D50.9 Iron deficiency anemia, unspecified; F32.9 Major depressive disorder, single episode, unspecified; Z20.822 Contact with and (suspected) exposure to COVID-19; F41.9 Anxiety disorder, unspecified; Z28.21 Immunization not carried out because of patient refusal; Z79.899 Other long term (current) drug therapy
CPT/HCPCS: 0240U; 36415; 80053; 80143; 80306; 80307; 81003; 81025; 83735; 84100; 84443; 84450; 84460; 85025; 85610; 85730; 93005; 96365; 96376; J0132; J2405; J3010; J3480; J7042; J7070

== ENCOUNTER 2023-08-29 14:15 | Emergency (ER) | payer BC, SELFPAY ==
[2023-08-29] MEDS ORDERED: Acetaminophen 500 MG TAB ONE (14:54)
[2023-08-29 15:04] LABS: #Basophils 0.08 10x3/uL (0.0-0.2); %Basophils 0.5 % (0.0-1.0); %Eosinophils 1.7 % (0.0-10.0); %Lymphocytes 21.1 % (21.0-51.0); %Monocytes 5.6 % (0.0-10.0); %Neutrophils 70.6 % (42.0-75.0); Hematocrit 31.1 % (36.0-47.0); Hemoglobin 10.8 g/dL (12.0-16.0); Mean Corpuscular HGB CONC 34.7 g/dL (32.0-36.0); Mean Corpuscular Hemoglobin 23.8 pg (27.0-31.0); Mean Corpuscular Volume 68.5 fL (78.0-98.0); Mean Platelet Volume 9.7 fL (7.4-10.4); Platelet Count 441 10x3/uL (130-400); RBC Distribution Width 20.8 % (11.5-14.5); Red Blood Cell (RBC) Count 4.54 mill/uL (4.20-5.40)
[2023-08-29 15:14] LABS: ALT (SGPT) 7 U/L (8-55); AST (SGOT) 13 U/L (5-34); Albumin 3.6 g/dL (3.5-5.0); Alkaline Phosphatase 46 U/L (40-110); Anion Gap 13 mmol/L (10-20); BUN (Urea Nitrogen) 10 mg/dL (7.0-18.7); Bilirubin, Total 0.5 mg/dL (0.2-1.2); Calc. Creatinine Clearance 0 mL/min (70-130); Calcium 9.2 mg/dL (7.8-10.44); Carbon Dioxide 18 mmol/L (22-29); Chloride 106 mmol/L (98-107); Estimated GFR 122; Globulin 3.5 g/dL (2.4-3.5); Glucose 80 mg/dL (70-105); Potassium 3.7 mmol/L (3.5-5.1); Protein, Total 7.1 g/dL (6.0-8.3); Sodium 133 mmol/L (136-145)
[2023-08-29 15:15] LABS: Bacteria/HPF None Seen HPF (None Seen); Bilirubin Negative (Negative); Blood, Urine 3+ (Negative); CAUTI Indications for Culture Dysuria,urgency,freq; Clarity Turbid (Clear); Glucose, Urine (Dipstick) Normal (Negative); Ketone, Urine Trace mg/dL (Negative); Leukocyte 25 Leu/uL (Negative); Nitrite Negative (Negative); Protein, Urine (Dipstick) 100 mg/dL (Neg-Trace); RBC/HPF Greater than 50 HPF (0-3); Squamous Epithelial 0-3 HPF (0-3); Urobilinogen 3 mg/dL (Less than 2); WBC/HPF 0-3 HPF (0-3)
[2023-08-29 15:16] LABS: Pregnancy Test - Urine (BHCG) POSITIVE (Negative); Pregu Control Background? CLEAR/WHITE (CLR/WHITE); Pregu Control Bar Appear? YES (CONTROL BAR)
[2023-08-29 15:17] LABS: Urine Culture Reflex No No
[2023-08-29 15:38] LABS: Microcytosis MODERATE=15-30 cells HPF (0-5); Platelet Adequacy Comment Platelets Increased; Polychromasia SLIGHT = 2-3 cells HPF (0-2); Schistocytes SLIGHT = 2-5 cells HPF (0-1); Target Cells SLIGHT = 2-5 cells HPF (0-1)
== END 2023-08-29 16:07 | disposition home or self-care (01) ==
LOC: ERS 14:15
DX: O20.0 Threatened abortion (principal); Z3A.11 11 weeks gestation of pregnancy
CPT/HCPCS: 36415; 76801; 80053; 81001; 81025; 84702; 85025; 86900; 86901